=== PATIENT | female | born 2005 | race Caucasian/White ===

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

== ENCOUNTER 2025-01-08 13:31 | Outpatient (CLI) | payer OTHER ==
[~2025-01-08] VITALS: Ht 160 cm; Wt 86.9 kg
[2025-01-08 13:50] VITALS: BP 128/89
[2025-01-08] MEDS ORDERED: ACET-907 PO (13:50)
[2025-01-08] MEDS ORDERED: HOME MED LIST COMPLETE! XX SCH (13:55)
[2025-01-08 14:02] VITALS: BP 122/83
[2025-01-08 14:21] VITALS: BP 120/73
[2025-01-08 14:27] LABS: PLATELET COUNT, AUTOMATED 194 10^3/uL (150-450)
[2025-01-08 14:59] VITALS: BP 122/81
[2025-01-08 15:04] LABS: LDH LACTATE DEHYDROGENASE 374 U/L (120-246)
[2025-01-08 15:05] LABS: ALT/SGPT 9 U/L (7.0-40); AST/SGOT 21 U/L (<34); CREATININE FOR GFR 0.53 MG/DL (0.55-1.30); GLOMERULAR FILTRATION RATE > 90.0 (>60)
[2025-01-08 15:34] LABS: TOTAL PROTEIN,RANDOM URINE 25.9 MG/DL (0.0-14.0)
== END 2025-01-08 16:00 | disposition home or self-care (01) ==
LOC: M LDO 13:31
PROVIDERS: ATTEND Specialist
DX: O13.3 Gestational [pregnancy-induced] hypertension without significant proteinuria, third trimester (principal); O99.343 Other mental disorders complicating pregnancy, third trimester; F41.8 Other specified anxiety disorders; Z3A.35 35 weeks gestation of pregnancy
CPT/HCPCS: 36415; 59025; 82247; 82570; 83615; 84156; 84450; 84460; 84550; 85027; G0463

== ENCOUNTER → 2025-01-09 | Outpatient (REF) | payer OTHER ==
[~2025-01-09] MED LIST changes: +ACET-907 PO
== END ==
LOC: M SFHCWAGY 17:32
PROVIDERS: ATTEND Student in an Organized Health Care Education/Training Program
DX: Z34.03 Encounter for supervision of normal first pregnancy, third trimester (principal)